=== PATIENT | male | born 1955 | race Caucasian/White ===

== ENCOUNTER 2022-03-28 10:58 | Emergency (ER) | payer OTHER ==
[2022-03-28] MEDS ORDERED: HYDROmorphone 0.5 MG/0.5 ML Syringe IVPUSH ONE ×2 (11:14→13:05)
[2022-03-28] MEDS ORDERED: Iopamidol 612 MG/ML 50 ML SDV IVPUSH ONE (11:27)
[2022-03-28] MEDS ORDERED: Iopamidol 612 MG/ML 100 ML Bottle IVPUSH ONE (11:27)
[2022-03-28 11:32] LABS: ESTIMATED GFR 61 mL/min (>60)
[2022-03-28] MEDS: Sodium Chloride 0.9% 10 ML Syringe FLUSH PRN ×2 (11:33→11:34)
[2022-03-28] MEDS ORDERED: Sodium Chloride 0.9% 1,000 ML IV ONE ×2 (12:31→14:42)
== END 2022-03-28 14:50 ==
LOC: JD.ED 10:58
DX: S22.32XA Fracture of one rib, left side, initial encounter for closed fracture (principal); S42.002A Fracture of unspecified part of left clavicle, initial encounter for closed fracture; S40.012A Contusion of left shoulder, initial encounter; S70.12XA Contusion of left thigh, initial encounter; S30.1XXA Contusion of abdominal wall, initial encounter; S20.219A Contusion of unspecified front wall of thorax, initial encounter; R04.89 Hemorrhage from other sites in respiratory passages; I25.2 Old myocardial infarction; I10 Essential (primary) hypertension; Z87.891 Personal history of nicotine dependence; Z20.822 Contact with and (suspected) exposure to COVID-19; V83.5XXA Driver of special industrial vehicle injured in nontraffic accident, initial encounter; Y92.410 Unspecified street and highway as the place of occurrence of the external cause
CPT/HCPCS: 36415; 70450; 71045; 71260; 72125; 72128; 72131; 73701; 74177; 80053; 85025; 85610; 86850; 86900; 86901; 87635; 96361; 96374; 96376; 99285; J1170; J3490; J7030; Q9967; U0002

== ENCOUNTER 2022-08-19 20:37 | Emergency (ER) | payer BC, MEDICARE ==
[2022-08-19] MEDS ORDERED: Alum Hydrox/Mag Hydrox/Simeth 30 ML, Lidocaine 2% 15 ML PO STA ×2 (21:28)
[2022-08-19] MEDS ORDERED: HYDROmorphone 0.5 MG/0.5 ML Syringe IVPUSH ONE (21:28)
[2022-08-19] MEDS ORDERED: Ondansetron 4 MG/2 ML SDV IVPUSH ONE (21:28)
[2022-08-19] MEDS ORDERED: Metoprolol Tartrate 5 MG/5 ML SDV IVPUSH ONE (21:33)
[2022-08-19] MEDS ORDERED: Heparin Sodium 5,000 Units/ML Vial IVPUSH STA (21:35)
[2022-08-19] MEDS ORDERED: Clopidogrel 75 MG Tab PO ONE (21:37)
[2022-08-19] MEDS ORDERED: Heparin Sodium/D5W 25,000 UNITS/500 ML BAG IV SCH (21:45)
[2022-08-19] MEDS ORDERED: atorvaSTATin 40 MG Tab PO STA (22:00)
[2022-08-19] MEDS ORDERED: Metoprolol Succinate 25 MG Tab.ER PO STA (22:02)
[2022-08-19] MEDS ORDERED: Magnesium Sulfate/Water 2 GM in Premix Bag 1 BAG IV ONE (22:08)
[2022-08-20] MEDS ORDERED: Acetaminophen 325 MG Tab PO ONE (06:08)
[2022-08-20] MEDS ORDERED: Nitroglycerin 0.4 MG Tab.SL SL ONE (11:40)
[2022-08-20] MEDS ORDERED: HYDROmorphone 0.5 MG/0.5 ML Syringe IVPUSH ONE (11:41)
== END 2022-08-20 12:10 ==
LOC: JD.ED 20:37
DX: I21.4 Non-ST elevation (NSTEMI) myocardial infarction (principal); I25.10 Atherosclerotic heart disease of native coronary artery without angina pectoris; I10 Essential (primary) hypertension; I25.2 Old myocardial infarction; Z86.16 Personal history of COVID-19; Z87.891 Personal history of nicotine dependence; Z20.822 Contact with and (suspected) exposure to COVID-19
CPT/HCPCS: 36415; 71045; 80053; 83690; 83735; 83880; 84484; 85025; 85379; 85610; 85730; 87635; 93005; 96365; 96366; 96368; 96375; 96376; 99285; A9270; J1170; J1644; J2405; J3475; J3490; U0002

== ENCOUNTER 2023-01-30 19:06 | Emergency (ER) | payer BC, MEDICARE ==
[2023-01-30] MEDS ORDERED: Morphine 4 MG/ML Syringe IVPUSH ONE (19:20)
[2023-01-30] MEDS ORDERED: Ondansetron 4 MG/2 ML SDV IVPUSH ONE (19:20)
[2023-01-30 19:27] LABS: BASOPHILS ABSOLUTE AUTO 0.03 K/mm3 (0.01-0.08); BASOPHILS PERCENT AUTO 0.3 % (0.1-1.2); EOSINOPHILS ABSOLUTE AUTO 0.35 K/mm3 (0.04-0.54); EOSINOPHILS PERCENT AUTO 2.9 (0.8-7.0); HEMATOCRIT 45.4 % (40.1-51.0); HEMOGLOBIN 16.1 gm/dl (13.7-17.5); IMMATURE GRAN ABSOLUTE AUTO 0.02 K/mm3 (0.00-0.10); IMMATURE GRAN PERCENT AUTO 0.2 % (<=1.0); LYMPHOCYTES ABSOLUTE AUTO 3.78 K/mm3 (1.32-3.57); LYMPHOCYTES PERCENT AUTO 31.7 % (21.8-53.1); MEAN CORPUSCULAR HEMOGLOBIN 30.3 pg (25.7-32.2); MEAN CORPUSCULAR HGB CONC 35.5 g/dl (32.2-35.5); MEAN CORPUSCULAR VOLUME 85.5 fl (79.0-92.2); MEAN PLATELET VOLUME 10.8 fl (9.4-12.3); MONOCYTES ABSOLUTE AUTO 1.33 K/mm3 (0.30-0.82); MONOCYTES PERCENT AUTO 11.2 % (5.3-12.2); NEUTROPHILS ABSOLUTE AUTO 6.41 K/mm3 (1.78-5.38); NEUTROPHILS PERCENT AUTO 53.7 % (34.0-67.9); PLATELET COUNT,PLT 249 K/mm3 (163-337); RED BLOOD CELL COUNT 5.31 M/mm3 (4.63-6.08); WHITE BLOOD CELL COUNT,WBC 11.92 K/mm3 (4.23-9.07)
[2023-01-30] MEDS ORDERED: LORazepam 2 MG/ML SDV IVPUSH ONE (19:43)
[2023-01-30 19:45] LABS: INR 1.04; PROTHROMBIN TIME 11.1 SECONDS (9.7-12.0)
[2023-01-30 20:02] LABS: A/G RATIO 1.1 (1-2); ALBUMIN 4.2 g/dl (3.4-5.0); ANION GAP 18.8 (5-15); BILIRUBIN TOTAL 1.7 mg/dL (0.2-1.0); CALCIUM 9.5 mg/dL (8.5-10.1); CREATININE 1.5 mg/dL (0.7-1.3); EST CRCL DRUG DOSING (CG) 49.1 mL/min; POTASSIUM,K 3.8 mEq/L (3.5-5.1); PROTEIN TOTAL,TP 8.2 g/dl (6.4-8.2)
== END 2023-01-30 23:50 | disposition home or self-care (01) ==
LOC: JD.ED 19:06
DX: R07.89 Other chest pain (principal); I25.10 Atherosclerotic heart disease of native coronary artery without angina pectoris; I10 Essential (primary) hypertension; I25.2 Old myocardial infarction; Z86.16 Personal history of COVID-19
CPT/HCPCS: 36415; 71045; 80053; 83690; 83880; 84484; 85025; 85610; 93005; 96374; 96375; 99284; J2060; J2270; J2405; 93010

== ENCOUNTER 2023-09-23 07:00 | Day surgery (SDC) | payer OTHER ==
[~2023-09-23 07:00] MED LIST: Sodium Chloride 0.9% 10 ML Syringe FLUSH PRN; Sodium Chloride 0.9% 10 ML Syringe FLUSH SCH
[2023-09-23] MEDS: Lactated Ringers 1,000 ML IV SCH (07:05)
[2023-09-23] MEDS ORDERED: Ropivacaine 0.5% 5 MG/ML 30 ML SDV ONE (07:11)
[2023-09-23] MEDS ORDERED: dexmedeTOMIDine HCl 200 MCG/2 ML SDV ONE (07:11)
[2023-09-23] MEDS ORDERED: Vancomycin 1 GM SDV ONE (07:14)
[2023-09-23] MEDS ORDERED: Tranexamic Acid 1,000 MG/10 ML Vial ONE (07:14)
[2023-09-23] MEDS ORDERED: fentaNYL 100 MCG/2 ML SDV ONE ×3 (07:17→09:55)
[2023-09-23] MEDS ORDERED: Midazolam 1 MG/ML 2 ML SDV ONE (07:18)
[2023-09-23] MEDS ORDERED: Dexamethasone 4 MG/ML 5 ML MDV ONE (07:18)
[2023-09-23] MEDS: oxyCODONE ER 10 MG TAB.ER PO SCH (07:30)
[2023-09-23] MEDS: Pregabalin 25 MG Cap PO SCH (07:30)
[2023-09-23] MEDS: Acetaminophen 325 MG Tab PO SCH (07:31)
[2023-09-23] MEDS ORDERED: EPINEPHrine 1 MG/ML SDV ONE (07:44)
[2023-09-23] MEDS ORDERED: ceFAZolin 2 GM Vial ONE (08:01)
[2023-09-23] MEDS ORDERED: Propofol 200 MG/20 ML SDV ONE ×2 (08:27→09:36)
[2023-09-23] MEDS ORDERED: Lidocaine 1% 6 ML ONE (09:07)
[2023-09-23] MEDS ORDERED: Ondansetron 4 MG/2 ML SDV ONE ×2 (09:46→10:12)
[2023-09-23] MEDS ORDERED: Lactated Ringers 1,000 ML ONE (10:04)
[2023-09-23] MEDS ORDERED: Metoclopramide 10 MG/2 ML SDV ONE (10:12)
[2023-09-23] MEDS: Vancomycin 1 GM SDV ONE (10:24)
[2023-09-23] MEDS: Tranexamic Acid 1,000 MG/10 ML Vial ONE (10:24)
[2023-09-23] MEDS: HYDROmorphone 0.5 MG/0.5 ML Syringe IVPUSH ONE (11:03)
[2023-09-23] MEDS ORDERED: oxyCODONE 5 MG Tab PO PRN (11:38)
== END 2023-09-23 14:45 | disposition home or self-care (01) ==
LOC: JD.SDS 07:00
PROVIDERS: ATTEND Orthopaedic Surgery
DX: M19.012 Primary osteoarthritis, left shoulder (principal); I25.10 Atherosclerotic heart disease of native coronary artery without angina pectoris; F32.A Depression, unspecified; E78.00 Pure hypercholesterolemia, unspecified; Z87.891 Personal history of nicotine dependence; Z79.899 Other long term (current) drug therapy
CPT/HCPCS: 23472; 64415; 76000; 97161; A9270; C1713; C1769; C1776; J0171; J0690; J1100; J1170; J2250; J2405; J2704; J2765; J2795; J3010; J3370; J7030; J7120; 01638; J3490

== ENCOUNTER 2024-05-16 11:13 | Emergency (ER) | payer MEDICARE, OTHER ==
[2024-05-16] MEDS ORDERED: Sodium Chloride 0.9% 10 ML Syringe FLUSH PRN (11:30)
[2024-05-16 12:04] LABS: BASOPHILS PERCENT AUTO 0.4 % (0.0-1.0); EOSINOPHILS ABSOLUTE AUTO 0.3 K/mm3 (0.0-0.4); EOSINOPHILS PERCENT AUTO 3.1 % (0.0-6.0); HEMATOCRIT 45.5 % (42.0-52.0); HEMOGLOBIN 15.9 gm/dl (14.0-18.0); IMMATURE GRAN ABSOLUTE AUTO 0.04 K/mm3 (0.00-0.05); IMMATURE GRAN PERCENT AUTO 0.5 % (0.0-0.4); LYMPHOCYTES ABSOLUTE AUTO 1.5 K/mm3 (1.0-4.8); LYMPHOCYTES PERCENT AUTO 18.8 % (24.0-44.0); MEAN CORPUSCULAR HEMOGLOBIN 30.1 pg (28.0-32.0); MEAN CORPUSCULAR HGB CONC 34.9 g/dl (32.0-36.0); MEAN PLATELET VOLUME 10.6 fl (9.4-12.4); MONOCYTES ABSOLUTE AUTO 0.7 K/mm3 (0.0-0.8); MONOCYTES PERCENT AUTO 8.4 % (0.0-8.0); NEUTROPHILS ABSOLUTE AUTO 5.5 K/mm3 (1.8-7.7); NEUTROPHILS PERCENT AUTO 68.8 % (41.0-71.0); PLATELET COUNT,PLT 184 K/mm3 (150-400); RED BLOOD CELL COUNT 5.29 M/mm3 (4.52-5.90); WHITE BLOOD CELL COUNT,WBC 7.97 K/mm3 (3.9-11.3)
[2024-05-16 12:32] LABS: ALBUMIN 3.7 g/dl (3.4-5.0); ANION GAP 12.6 (5-15); BUN/CREATININE RATIO 13.6 (14-18); CALCIUM 9.1 mg/dL (8.5-10.1); CREATININE 1.4 mg/dL (0.7-1.3); EST CRCL DRUG DOSING (CG) 51.9 mL/min; POTASSIUM,K 4.6 mEq/L (3.5-5.1); PROTEIN TOTAL,TP 7.6 g/dl (6.4-8.2)
[2024-05-16] MEDS: Metoprolol Succinate 25 MG Tab.ER PO ONE (12:50)
[2024-05-16] MEDS: Losartan 50 MG Tab PO ONE (12:50)
== END 2024-05-16 14:00 ==
LOC: JD.ED 11:13
DX: I62.9 Nontraumatic intracranial hemorrhage, unspecified (principal); I10 Essential (primary) hypertension; I25.10 Atherosclerotic heart disease of native coronary artery without angina pectoris; Z86.16 Personal history of COVID-19
CPT/HCPCS: 36415; 70450; 80053; 82947; 84484; 85025; 93005; 99285; A9270

== ENCOUNTER 2024-06-02 04:54 | Emergency (ER) | payer MEDICARE ==
[2024-06-02] MEDS ORDERED: Sodium Chloride 0.9% 10 ML Syringe FLUSH PRN (05:14)
[2024-06-02] MEDS: HYDROmorphone 0.5 MG/0.5 ML Syringe IVPUSH ONE (05:27)
[2024-06-02] MEDS: Ondansetron 4 MG/2 ML SDV IVPUSH ONE (05:28)
[2024-06-02] MEDS: Sodium Chloride 0.9% 1,000 ML IV SCH (05:31)
[2024-06-02 05:40] LABS: BASOPHILS ABSOLUTE AUTO 0.1 K/mm3 (0.0-0.2); BASOPHILS PERCENT AUTO 0.7 % (0.0-1.0); EOSINOPHILS ABSOLUTE AUTO 0.3 K/mm3 (0.0-0.4); EOSINOPHILS PERCENT AUTO 3.4 % (0.0-6.0); HEMATOCRIT 45.5 % (42.0-52.0); HEMOGLOBIN 16.1 gm/dl (14.0-18.0); IMMATURE GRAN ABSOLUTE AUTO 0.04 K/mm3 (0.00-0.05); IMMATURE GRAN PERCENT AUTO 0.4 % (0.0-0.4); LYMPHOCYTES ABSOLUTE AUTO 2.4 K/mm3 (1.0-4.8); LYMPHOCYTES PERCENT AUTO 25.4 % (24.0-44.0); MEAN CORPUSCULAR HGB CONC 35.4 g/dl (32.0-36.0); MEAN CORPUSCULAR VOLUME 84.7 fl (83.0-99.0); MEAN PLATELET VOLUME 10.6 fl (9.4-12.4); MONOCYTES ABSOLUTE AUTO 0.9 K/mm3 (0.0-0.8); MONOCYTES PERCENT AUTO 9.9 % (0.0-8.0); NEUTROPHILS ABSOLUTE AUTO 5.7 K/mm3 (1.8-7.7); NEUTROPHILS PERCENT AUTO 60.2 % (41.0-71.0); PLATELET COUNT,PLT 239 K/mm3 (150-400); RED BLOOD CELL COUNT 5.37 M/mm3 (4.52-5.90); WHITE BLOOD CELL COUNT,WBC 9.49 K/mm3 (3.9-11.3)
[2024-06-02 05:57] LABS: ALBUMIN 3.9 g/dl (3.4-5.0); ANION GAP 15.1 (5-15); BILIRUBIN TOTAL 2.5 mg/dL (0.2-1.0); BUN/CREATININE RATIO 10.6 (14-18); C-REACTIVE PROTEIN 0.17 mg/dL (<0.30); CALCIUM 9.2 mg/dL (8.5-10.1); CREATININE 1.7 mg/dL (0.7-1.3); EST CRCL DRUG DOSING (CG) 39.96 mL/min; POTASSIUM,K 4.1 mEq/L (3.5-5.1); PROTEIN TOTAL,TP 7.9 g/dl (6.4-8.2)
[2024-06-02] MEDS: Magnesium Citrate Solution 296 ML Bottle PO ONE (06:48)
== END 2024-06-02 06:59 | disposition home or self-care (01) ==
LOC: JD.ED 04:54
DX: K59.00 Constipation, unspecified (principal); I25.10 Atherosclerotic heart disease of native coronary artery without angina pectoris; I25.2 Old myocardial infarction; E78.00 Pure hypercholesterolemia, unspecified; Z86.16 Personal history of COVID-19; Z95.5 Presence of coronary angioplasty implant and graft; Z79.899 Other long term (current) drug therapy
CPT/HCPCS: 36415; 74019; 80053; 85025; 86140; 96361; 96374; 96375; 99284; J1171; J2405; J7030; A9270-GY

== ENCOUNTER 2024-06-04 01:02 | Emergency (ER) | payer MEDICARE ==
[2024-06-04] MEDS ORDERED: Lidocaine 1% 10 ML MDV INJECT ONE (01:50)
[2024-06-04] MEDS ORDERED: Lidocaine 2% 11 ML Jelly Filled Syringe MUCMEM ONE (01:50)
[2024-06-04 02:10] LABS: BASOPHILS PERCENT AUTO 0.4 % (0.0-1.0); EOSINOPHILS ABSOLUTE AUTO 0.2 K/mm3 (0.0-0.4); EOSINOPHILS PERCENT AUTO 2.3 % (0.0-6.0); HEMATOCRIT 43.1 % (42.0-52.0); HEMOGLOBIN 15.3 gm/dl (14.0-18.0); IMMATURE GRAN ABSOLUTE AUTO 0.04 K/mm3 (0.00-0.05); IMMATURE GRAN PERCENT AUTO 0.4 % (0.0-0.4); LYMPHOCYTES PERCENT AUTO 19.9 % (24.0-44.0); MEAN CORPUSCULAR HEMOGLOBIN 30.1 pg (28.0-32.0); MEAN CORPUSCULAR HGB CONC 35.5 g/dl (32.0-36.0); MEAN CORPUSCULAR VOLUME 84.8 fl (83.0-99.0); MEAN PLATELET VOLUME 10.2 fl (9.4-12.4); MONOCYTES ABSOLUTE AUTO 0.9 K/mm3 (0.0-0.8); MONOCYTES PERCENT AUTO 9.3 % (0.0-8.0); NEUTROPHILS ABSOLUTE AUTO 6.8 K/mm3 (1.8-7.7); NEUTROPHILS PERCENT AUTO 67.7 % (41.0-71.0); PLATELET COUNT,PLT 210 K/mm3 (150-400); RED BLOOD CELL COUNT 5.08 M/mm3 (4.52-5.90); WHITE BLOOD CELL COUNT,WBC 10.06 K/mm3 (3.9-11.3)
[2024-06-04] MEDS: Lidocaine 2% 11 ML Jelly Filled Syringe MUCMEM ONE ×2 (02:30→11:00)
[2024-06-04 02:33] LABS: ALBUMIN 3.7 g/dl (3.4-5.0); BILIRUBIN TOTAL 2.5 mg/dL (0.2-1.0); BUN/CREATININE RATIO 11.8 (14-18); C-REACTIVE PROTEIN 1.09 mg/dL (<0.30); CALCIUM 8.9 mg/dL (8.5-10.1); CREATININE 1.7 mg/dL (0.7-1.3); EST CRCL DRUG DOSING (CG) 42.74 mL/min; PROTEIN TOTAL,TP 7.5 g/dl (6.4-8.2)
[2024-06-04] MEDS ORDERED: levETIRAcetam 500 MG/5 ML SDV IVPUSH ONE (04:20)
[2024-06-04] MEDS ORDERED: Dexamethasone 10 MG/ML SDV IVPUSH ONE (04:21)
[2024-06-04] MEDS: Ondansetron 4 MG Tab.DIS PO ONE (04:33)
[2024-06-04] MEDS: Dicyclomine 20 MG/2 ML SDV IM ONE (04:34)
[2024-06-04] MEDS: HYDROmorphone 0.5 MG/0.5 ML Syringe IVPUSH ONE (04:37)
[2024-06-04] MEDS: Sodium Chloride 0.9% 1,000 ML IV ONE (04:57)
[2024-06-04] MEDS: Magnesium Citrate Solution 296 ML Bottle PO ONE (04:57)
[2024-06-04] MEDS: Iopamidol 755 Mg/ML 100 ML Bottle IVPUSH ONE (08:56)
[2024-06-04] MEDS: Sodium Chloride 0.9% 100 ML IV SCH (08:57)
[2024-06-04] MEDS: fentaNYL 100 MCG/2 ML SDV IVPUSH ONE (08:59)
[2024-06-04] MEDS: Ketorolac 15 MG/ML SDV IVPUSH ONE (11:01)
[2024-06-04 11:34] LABS: APPEARANCE,URINE CLEAR (Clear); BILIRUBIN,URINE NEGATIVE (Negative); COLOR,URINE YELLOW (Yellow); GLUCOSE,URINE NEGATIVE (Negative); KETONES,URINE NEGATIVE (Negative); LEUKOCYTE ESTERASE,URINE NEGATIVE (Negative); NITRITE,URINE NEGATIVE (Negative); OCCULT BLOOD,URINE 1+ (Negative); PROTEIN,URINE NEGATIVE (Negative); UROBILINOGEN,URINE 0.2 (0.2-1.0)
[2024-06-04 11:47] LABS: BACTERIA,URINE OCCASIONAL /hpf (FEW); SQUAMOUS EPITHELIAL CELLS,UR NOT SEEN /hpf (0-5); WBC,URINE 0-5 /hpf (0-5)
[2024-06-04 11:48] LABS: MUCUS,URINE NOT SEEN /hpf (FEW)
== END 2024-06-04 12:50 | disposition home or self-care (01) ==
LOC: JD.ED 01:02
DX: N20.1 Calculus of ureter (principal); K59.01 Slow transit constipation; I25.10 Atherosclerotic heart disease of native coronary artery without angina pectoris; I25.2 Old myocardial infarction; E78.00 Pure hypercholesterolemia, unspecified; K21.9 Gastro-esophageal reflux disease without esophagitis; Z95.5 Presence of coronary angioplasty implant and graft; Z86.16 Personal history of COVID-19; Z79.899 Other long term (current) drug therapy
CPT/HCPCS: 36415; 74018; 74177; 80053; 81001; 83690; 85025; 86140; 96361; 96372; 96374; 96375; 99284; J0500; J1171; J1885; J3010; J3490; J7030; Q9967; A9270-GY